=== PATIENT | male | born 1980 | race African-American/Black ===

== ENCOUNTER 2020-05-17 15:36 | Outpatient (CLI) | payer OTHER, SELFPAY ==
--- NOTE | ~2020-05-17 | CT_ITS ---
EXAMINATION: CT abdomen pelvis wo/w con DATE: 05/17/2020 16:45 INDICATION: Hematuria TECHNIQUE: Computed tomography (CT) of the abdomen and pelvis was performed without intravenous contr ast. CT of the abdomen and pelvis was then performed with a total of 130 mL Omnipaque 350 intravenous contrast using a double-bolus technique for simultaneous opacification of the renal parenchyma and r enal collecting system. The dose-length product (DLP) was 2304.11 mGy-cm. Automated exposure control and iterative reconstruction technique were employed. COMPARISON: None FINDINGS: The lung bases are clear. The heart size is normal. There is a small sliding hiatal hernia. The liver, spleen, pancreas, gallbladder, and adrenal glands are normal. No stones are identified in the kidneys, ureters, or bladder. There is no hydronephrosis or hydroureter. No suspicious renal or urothelial lesion is identified. The appendix is normal. No pathologically enlarged abdominal or pelv ic lymph nodes are identified. There is no free intraperitoneal gas or evidence of bowel obstruction. There is mild lumbar spondylosis. IMPRESSION: 1. No CT correlate for the patient's symptoms. Reviewed, dictated and finalized at location A. [employer]
[2020-05-21 11:23] LABS: Estimated Glomerular Filt Rate > 60
== END 2020-05-17 15:37 | disposition home or self-care (01) ==
PROVIDERS: PCP Internal Medicine; Visit Provider Internal Medicine
DX: R31.9 Hematuria, unspecified (principal)
CPT/HCPCS: 74178; Q9967

== ENCOUNTER 2020-06-01 01:12 | Outpatient (CLI) | payer OTHER, SELFPAY ==
[2020-06-01 19:30] LABS: SARS-CoV-2 RNA PCR Negative
== END 2020-06-01 01:13 | disposition home or self-care (01) ==
LOC: ANHCOVIDDT 01:12
PROVIDERS: PCP Internal Medicine; Visit Provider Internal Medicine Critical Care Medicine
DX: Z01.818 Encounter for other preprocedural examination (principal); Z20.828 Contact with and (suspected) exposure to other viral communicable diseases
CPT/HCPCS: 87635; C9803; U0003

== ENCOUNTER 2020-06-03 07:48 | Outpatient (CLI) | payer OTHER, SELFPAY ==
--- NOTE | 2020-07-15 13:14 | WPDSLEEPSTUD ---
Sleep Study Date of Study: 06/03/20 Ordering Provider: Neftali Feng APRN Interpreting Physician: Ilda Mantilla MD Sleep Study Type: Split Polysomnogram Height: 1.88 m Weight: 108.862 kg Body Mass Index: 30.8 Neck Circumference: 48.26 cm [place]: 12 Reason for Sleep Study Hypersomnia Sleep History Nicolas Joshua is a 39 year old man who has complaints of loud snoring with witnessed apneas. He is always sleepy in the daytime. He regularly takes naps. This all started around 3 years ago. He wakes up throughout the night. His snoring is constantly loud enough that others complain about it. He rarely awakens at night with heartburn, belching or coughing. He frequently awakens from sleep feeling short of breath. He occasionally has trouble sleep with a cold. He frequently wakes up gasping for breath during the night. He occasionally has breathing problems at night observed by others. He frequently sweats excessively at night. He occasionally notices his heart pounding or beating irregularly at night. He occasionally falls asleep during the day, occasionally involuntarily, rarely while driving. He does not fall asleep while exerting physical effort. He does not have loss of muscle tone with strong emotion. He rarely has daytime difficulties due to excessive sleepiness, works as a metal welder. He does not feel paralyzed on waking or falling asleep. He does not have vivid dreamlike scenes upon awakening or falling asleep. He never feels afraid to go to sleep. He rarely has nightmares. He occasionally remembers his dreams. He frequently has racing thoughts through his mind. He rarely feels sad depressed or anxious. He does not have muscular tension. He rarely notices his body jerking at night. He does not kick during the night, does not have crawling and aching feelings in his legs at night, does not have leg pain during the night and does not have morning jaw pain. He does not grind his teeth during sleep. He is not bothered by pain during the day. He rarely is awakened by pain at night, rarely wakes up feeling stiff in the morning with sore achy muscles or pain in the neck and spine. He has fatigue during the day. He rarely has a morning headache. Normal bedtime is between 9:10 p.m., sometimes falling asleep quickly other times taking 1/2 hour. He typically wakes 4-5 times during the night, remains awake between 2 and 10 minutes. He goes to urinate while awake. He wakes the morning between 5 and 6:00 a.m.. On weekends, he stays awake until 10 or 11:00 p.m., and sleeps until 8 or 9:00 a.m.. He estimates getting between 6 and 7 hours of sleep at night. He does take naps in the afternoon or evening. A short nap may be refreshing. He is usually drowsy in the morning for 2 hours or longer. [facility] Past Medical History Medical History (Updated 07/15/20 @ 13:53 by Ilda Mantilla MD) Essential (primary) hypertension Social History Social History Smoking status: Never smoker Medications Home Medications Medication Instructions Recorded Confirmed Type amlodipine 5 mg tablet 5 mg PO DAILY #30 tablet 04/23/20 05/21/20 Rx Sleep Procedure This test was performed using the [employer] multiple channel system including EOG, EEG, submental EMG, EKG, nasal and oral airflow using thermistors and nasal pressure sensors, chest and abdominal belts for body position data, and pulse oximetry. Video monitoring was also performed. The study was scored using CMS guidelines. After the baseline portion the patient met criteria for a titration with an apnea-hypopnea index of 44.6, severe obstructive sleep apnea with desaturation to 87%. CPAP was attempted at 5 cm but the patient absolutely could not tolerate it at all. The event crew technician offered BiPAP 8/4 which he was able to tolerate. He used large Airfit P10 nasal pillows and heated humidifier P. Pressure was increased from 8/4 to 14/
[2020-07-15 14:00] VITALS: BMI 30.8
== END 2020-06-03 07:49 | disposition home or self-care (01) ==
LOC: ANHCSM 07:49
PROVIDERS: PCP Internal Medicine; Visit Provider Nurse Practitioner
DX: G47.33 Obstructive sleep apnea (adult) (pediatric) (principal)
CPT/HCPCS: 95811